=== PATIENT | male | born 1960 | race African-American/Black ===

== ENCOUNTER 2016-07-21 20:36 | Inpatient (IN) | payer MEDICAID ==
[~2016-07-21] VITALS: Ht 167.6 cm; Wt 59.4 kg
[2016-07-21] MEDS ORDERED: LEVOFLOXACIN 500MG PREMIX 100 ML IV ONE (21:30)
[2016-07-21] MEDS ORDERED: PREDNISONE 20MG TABLET PO ONE (21:30)
[2016-07-21] MEDS ORDERED: CEFTRIAXONE SODIUM 1 G/VIAL IM ONE (21:30)
[2016-07-21] MEDS ORDERED: ACETAMINOPHEN 325MG TABLET PO ONE (21:30)
[2016-07-21] MEDS ORDERED: CEFTRIAXONE 1 G PREMIX 50 ML IV ONE (21:30)
[2016-07-21] MEDS ORDERED: IPRATROPIUM/ALBUTEROL 0.5-3(2.5)MG/3ML NEB HHN ONE (21:30)
[2016-07-21 21:52] LABS: HEMATOCRIT. 41.3 % (42.0-52.0); HEMOGLOBIN. 13.8 g/dL (14.0-18.0); MEAN CORPUSCULAR HEMOGLOBIN 27.4 pg (28.0-32.0); MEAN CORPUSCULAR HGB CONC 33.4 g/dL (31.0-37.0); MEAN CORPUSCULAR VOLUME 82.1 fL (80.0-94.0); MEAN PLATELET VOLUME 8.7 fl (7.4-10.4); PLATELET 258 x1000/uL (130-400); RED BLOOD CELL COUNT 5.04 mill/uL (4.7-6.1); RED CELL DISTRIBUTION WIDTH 15.8 % (11.6-14.6); WHITE BLOOD COUNT 9.9 x1000/uL (4.5-11.0)
[2016-07-21 21:58] LABS: DIFFERENTIAL COMMENT 1
[2016-07-21 22:01] LABS: ALBUMIN 2.9 g/dL (3.4-5.0); ANION GAP 14; CALCIUM 8.7 mg/dL (8.5-10.1); CARBON DIOXIDE 22 mEq/L (21-32); CHLORIDE 103 mEq/L (98-107); INDEX HEMOLYSI 1 (1-3); INDEX ICTERIC 1 (1-4); INDEX LIPEMIC 1 (1-3); UREA NITROGEN BLOOD 25 mg/dL (7-21)
[2016-07-21 22:05] LABS: ALANINE AMINOTRANSFERASE 17 IU/L (13-61); eGFR > 60 mL/min (>60)
[2016-07-21 22:18] LABS: PLATELET ESTIMATE NORMAL
[2016-07-21 22:21] LABS: BG BASE EXCESS -1.1 mmol/L (-2.0-2.0); BG CARBOXYHEMOGLOBIN 1.2 % (0.5-1.5); BG DEOXYHEMOGLOBIN 14.6 % (0.0-5.0); BG FRACTION INSPIRED OXYGEN 21; BG HCO3 ACT 20.4 mmol/L (22.0-26.0); BG METHEMOGLOBIN 0.1 % (0.0-1.5); BG OXYGEN SATURATION 85.2 % (92.0-98.5); BG OXYHEMOGLOBIN 84.1 % (94.0-97.0); BG PCO2 26.5 mmHg (35.0-45.0); BG PH 7.505 (7.350-7.450); BG PO2 48.7 mmHg (75.0-100.0); BG SAMPLE SITE LEFT RADIAL; BG TOTAL HEMOGLOBIN 14.6 g/dL (12.0-18.0); BG VENT MODE ROOM AIR
[2016-07-21] MEDS ORDERED: ONDANSETRON HCL 4MG/2ML VIAL IV ONE (23:30)
[2016-07-22] MEDS ORDERED: GUAIFENESIN 200MG/10ML SUGAR FREE UDC PO PRN (00:45)
[2016-07-22] MEDS ORDERED: HYDROCODONE/ACETAMINOPHEN 5/325MG TABLET PO PRN (00:45)
[2016-07-22] MEDS ORDERED: ONDANSETRON HCL 4MG/2ML VIAL IV PRN (00:45)
[2016-07-22] MEDS ORDERED: MAGNESIUM/ALUMINUM HYDROXIDE/SIMETHICONE 30ML UDC PO PRN (00:45)
[2016-07-22] MEDS ORDERED: HYDROMORPHONE HCL/PF 2MG/ML CPJ IV PRN (00:45)
[2016-07-22] MEDS ORDERED: DOCUSATE SODIUM 100MG CAPSULE PO PRN (00:45)
[2016-07-22 02:30] VITALS: BP 120/80
[2016-07-22 02:39] VITALS: BP 120/80
[2016-07-22] MEDS: SODIUM CHLORIDE 0.9% 1,000 ML IV SCH ×2 (02:44→17:38)
[2016-07-22] MEDS ORDERED: RITO100T PO (03:15)
[2016-07-22] MEDS ORDERED: ENAL5TAB PO (03:15)
[2016-07-22] MEDS ORDERED: ETRAVIRINE PO (03:15)
[2016-07-22] MEDS ORDERED: PREZISTA PO (03:15)
[2016-07-22] MEDS ORDERED: AZIT500T5 PO (03:15)
[2016-07-22 04:06] LABS: CLARITY URINE CLEAR (CLEAR); COLOR URINE YELLOW (YELLOW); GLUCOSE URINE NEGATIVE (NEGATIVE); KETONES URINE NEGATIVE (NEGATIVE); LEUKOCYTE ESTERASE URINE NEGATIVE (NEGATIVE); NITRITE URINE NEGATIVE (NEGATIVE); OCCULT BLOOD URINE NEGATIVE (NEGATIVE); PH URINE 5.5 (4.5-8.0); PROTEIN URINE NEGATIVE (NEGATIVE); SPECIFIC GRAVITY URINE 1.064 (1.005-1.030)
[2016-07-22] MEDS: PREDNISONE 20MG TABLET PO SCH ×2 (05:37→13:37)
[2016-07-22 07:32] LABS: CREATINE KINASE MB FRACTION 3.4 ng/mL (0.5-3.6); TROPONIN I 0.05 ng/mL (0.00-0.04)
[2016-07-22 08:00] VITALS: BP 149/89
[2016-07-22] MEDS: ENOXAPARIN 40MG/0.4ML SYR SUBCUT SCH (09:27)
[2016-07-22] MEDS: ASPIRIN 81MG TABLET PO SCH (09:27)
[2016-07-22] MEDS ORDERED: SODIUM CHLORIDE 0.9% 10ML VIAL ONE (11:01)
[2016-07-22] MEDS ORDERED: IOHEXOL-350 100 ML BOTTLE ONE (11:01)
[2016-07-22 12:00] VITALS: BP 142/76
[2016-07-22] MEDS: ENALAPRIL 5MG TABLET PO SCH (13:38)
[2016-07-22 14:07] LABS: *AMPHETAMINES SCREEN URINE NEGATIVE (NEGATIVE); *BARBITURATES SCREEN URINE NEGATIVE (NEGATIVE); *BENZODIAZEPINES SCREEN URINE NEGATIVE (NEGATIVE); *COCAINE SCREEN URINE PRESUMTIVE POSITIVE (NEGATIVE); CANNABINOID URINE SCREEN PRESUMTIVE POSITIVE (NEGATIVE); ECSTASY MDMA SCREEN URINE NEGATIVE (NEGATIVE); METHADONE URINE SCREEN NEGATIVE (NEGATIVE); OPIATES URINE SCREEN NEGATIVE (NEGATIVE); PHENCYCLIDINE URINE SCREEN NEGATIVE (NEGATIVE)
[2016-07-22 16:00] VITALS: BP 136/91
[2016-07-22 16:38] LABS: CREATINE KINASE MB FRACTION 4.6 ng/mL (0.5-3.6); TROPONIN I 0.03 ng/mL (0.00-0.04)
[2016-07-22] MEDS ORDERED: PREZISTA 600 MG PO SCH (17:00)
[2016-07-22] MEDS ORDERED: ETRAVIRINE 200 MG PO SCH (17:00)
[2016-07-22] MEDS ORDERED: NICOTINE 21MG PATCH TD ONE (17:15)
[2016-07-22] MEDS ORDERED: LORAZEPAM 2MG/ML CPJ IV PRN (17:15)
[2016-07-22] MEDS ORDERED: MORPHINE SULFATE 2 MG/ML CPJ (NOT FOR IM USE) IV PRN (17:15)
[2016-07-22] MEDS ORDERED: NICOTINE 21MG PATCH TD SCH (17:25)
[2016-07-22] MEDS: SULFAMETHOXAZOLE/TRIMETHOPRIM 800/160MG TABLET PO SCH (17:37)
[2016-07-22] MEDS: MULTIVITAMINS,THER W-MINERALS TABLET PO SCH (17:37)
[2016-07-22] MEDS: THIAMINE HCL 100MG TABLET PO SCH (17:37)
[2016-07-22] MEDS: FOLIC ACID 1MG TABLET PO SCH (17:37)
[2016-07-22] MEDS: RITONAVIR 100 MG TABLET PO SCH (17:37)
[2016-07-22] MEDS: PREZISTA 600 MG PO SCH (17:38)
[2016-07-22] MEDS: INTELENCE 200 MG PO SCH (17:39)
[2016-07-22] MEDS ORDERED: PNEUMOCOCCAL 23-VAL P-SAC VAC 0.5 ML IM ONE (18:00)
[2016-07-22] MEDS: IPRATROPIUM/ALBUTEROL 0.5-3(2.5)MG/3ML NEB INH SCH (18:53)
[2016-07-22 20:00] VITALS: BP 140/99
[2016-07-22 20:13] LABS: BG BASE EXCESS -3.9 mmol/L (-2.0-2.0); BG CARBOXYHEMOGLOBIN 0.1 % (0.5-1.5); BG DEOXYHEMOGLOBIN 2.6 % (0.0-5.0); BG FRACTION INSPIRED OXYGEN 100; BG HCO3 ACT 19.6 mmol/L (22.0-26.0); BG METHEMOGLOBIN 0.3 % (0.0-1.5); BG OXYGEN SATURATION 97.4 % (92.0-98.5); BG PH 7.419 (7.350-7.450); BG PO2 106.2 mmHg (75.0-100.0); BG SAMPLE SITE LEFT RADIAL; BG TOTAL HEMOGLOBIN 12.3 g/dL (12.0-18.0); BG VENT MODE MASK - NRB
[2016-07-22] MEDS: BUDESONIDE 0.5MG/2ML NEB HHN SCH (20:40)
[2016-07-22] MEDS: NICOTINE 21MG PATCH TD SCH (21:48)
[2016-07-22] MEDS: METHYLPREDNISOLONE SOD SUCC 125 MG/2 ML VIAL IV SCH (21:59)
[2016-07-22] MEDS ORDERED: CEFTRIAXONE 1 G PREMIX 50 ML IV SCH (22:00)
[2016-07-22] MEDS ORDERED: LEVOFLOXACIN 500MG PREMIX 100 ML IV SCH (22:00)
[2016-07-23] VITALS: BP 127/82
[2016-07-23] MEDS: IPRATROPIUM/ALBUTEROL 0.5-3(2.5)MG/3ML NEB INH SCH ×4 (00:37→11:54)
[2016-07-23 04:00] VITALS: BP 145/101
[2016-07-23] MEDS: METHYLPREDNISOLONE SOD SUCC 125 MG/2 ML VIAL IV SCH (06:14)
[2016-07-23] MEDS: SODIUM CHLORIDE 0.9% 1,000 ML IV SCH (06:18)
[2016-07-23 06:28] LABS: HEMATOCRIT. 36.8 % (42.0-52.0); HEMOGLOBIN. 11.9 g/dL (14.0-18.0); MEAN CORPUSCULAR HGB CONC 32.4 g/dL (31.0-37.0); MEAN CORPUSCULAR VOLUME 83.5 fL (80.0-94.0); MEAN PLATELET VOLUME 8.8 fl (7.4-10.4); PLATELET 277 x1000/uL (130-400); RED CELL DISTRIBUTION WIDTH 15.5 % (11.6-14.6); WHITE BLOOD COUNT 18.1 x1000/uL (4.5-11.0)
[2016-07-23 06:36] LABS: CALCIUM 8.5 mg/dL (8.5-10.1); INDEX HEMOLYSI 1 (1-3); INDEX ICTERIC 1 (1-4); INDEX LIPEMIC 1 (1-3)
[2016-07-23 06:56] LABS: DIFFERENTIAL COMMENT 1
[2016-07-23 06:58] LABS: CARBON DIOXIDE 23 mEq/L (21-32); LDL CHOLESTEROL 74 mg/dL (5-100); TRIGLYCERIDE 116 mg/dL (0-150); UREA NITROGEN BLOOD 21 mg/dL (7-21); eGFR > 60 mL/min (>60)
[2016-07-23 07:05] LABS: ALANINE AMINOTRANSFERASE 21 IU/L (13-61); ALBUMIN 2.4 g/dL (3.4-5.0); ANION GAP 13; CHLORIDE 110 mEq/L (98-107); HDL CHOLESTEROL 25 mg/dL (40-59)
[2016-07-23 07:43] LABS: BG BASE EXCESS -3.2 mmol/L (-2.0-2.0); BG CARBOXYHEMOGLOBIN 0.5 % (0.5-1.5); BG DEOXYHEMOGLOBIN 10.9 % (0.0-5.0); BG FRACTION INSPIRED OXYGEN 36; BG HCO3 ACT 20.4 mmol/L (22.0-26.0); BG METHEMOGLOBIN 0.2 % (0.0-1.5); BG OXYHEMOGLOBIN 88.4 % (94.0-97.0); BG PCO2 32.4 mmHg (35.0-45.0); BG PH 7.418 (7.350-7.450); BG PO2 58.1 mmHg (75.0-100.0); BG SAMPLE SITE RIGHT BRACHIAL; BG VENT MODE NASAL CANNULA
[2016-07-23 08:00] VITALS: BP 136/90
[2016-07-23] MEDS: BUDESONIDE 0.5MG/2ML NEB HHN SCH ×2 (08:13→20:49)
[2016-07-23] MEDS: ENOXAPARIN 40MG/0.4ML SYR SUBCUT SCH (08:37)
[2016-07-23] MEDS: MULTIVITAMINS,THER W-MINERALS TABLET PO SCH (08:38)
[2016-07-23] MEDS: THIAMINE HCL 100MG TABLET PO SCH (08:38)
[2016-07-23] MEDS: NICOTINE 21MG PATCH TD SCH (08:38)
[2016-07-23] MEDS: FOLIC ACID 1MG TABLET PO SCH (08:39)
[2016-07-23] MEDS: ASPIRIN 81MG TABLET PO SCH (08:39)
[2016-07-23] MEDS: SULFAMETHOXAZOLE/TRIMETHOPRIM 800/160MG TABLET PO SCH (08:39)
[2016-07-23] MEDS: ENALAPRIL 5MG TABLET PO SCH (08:39)
[2016-07-23] MEDS: RITONAVIR 100 MG TABLET PO SCH ×2 (08:39→16:42)
[2016-07-23] MEDS: PREZISTA 600 MG PO SCH ×2 (08:40→16:43)
[2016-07-23] MEDS: INTELENCE 200 MG PO SCH ×2 (08:40→16:43)
[2016-07-23 09:41] LABS: T4 FREE 1.11 ng/dL (0.76-1.46); THYROID STIMULATING HORMONE 0.24 uIU/mL (0.36-3.74)
[2016-07-23 10:37] LABS: PLATELET ESTIMATE NORMAL
[2016-07-23] MEDS ORDERED: DILTIAZEM HCL 5MG/ML 5ML VIAL IV NR (14:00)
[2016-07-23 14:21] LABS: BG BASE EXCESS -3.3 mmol/L (-2.0-2.0); BG CARBOXYHEMOGLOBIN 0.4 % (0.5-1.5); BG DEOXYHEMOGLOBIN 3.8 % (0.0-5.0); BG HCO3 ACT 20.8 mmol/L (22.0-26.0); BG METHEMOGLOBIN 0.2 % (0.0-1.5); BG OXYGEN SATURATION 96.2 % (92.0-98.5); BG OXYHEMOGLOBIN 95.6 % (94.0-97.0); BG PCO2 34.2 mmHg (35.0-45.0); BG PH 7.401 (7.350-7.450); BG PO2 89.8 mmHg (75.0-100.0); BG SAMPLE SITE RIGHT RADIAL; BG TOTAL HEMOGLOBIN 12.9 g/dL (12.0-18.0); BG VENT MODE MASK - NRB
[2016-07-23] MEDS: FAMOTIDINE 20MG/2ML VIAL IV SCH ×2 (14:24→21:22)
[2016-07-23] MEDS: METHYLPREDNISOLONE SOD SUCC 40 MG/ML VIAL IV SCH ×2 (14:24→21:22)
[2016-07-23 16:00] VITALS: BP 123/86
[2016-07-23 20:00] VITALS: BP 149/106
[2016-07-23] MEDS: FLUTICASONE PROPIONATE 50MCG/SPRAY BOTTLE BOTHNSTRLS SCH (21:44)
[2016-07-24] VITALS: BP 148/93
[2016-07-24 04:00] VITALS: BP 148/100
[2016-07-24] MEDS: CLONIDINE 0.1MG TABLET PO PRN ×3 (05:04→18:37)
[2016-07-24] MEDS: ACETAMINOPHEN 325MG TABLET PO PRN (05:08)
[2016-07-24] MEDS: METHYLPREDNISOLONE SOD SUCC 40 MG/ML VIAL IV SCH ×3 (06:03→21:47)
[2016-07-24 06:25] LABS: HEMATOCRIT. 34.3 % (42.0-52.0); HEMOGLOBIN. 11.2 g/dL (14.0-18.0); MEAN CORPUSCULAR HEMOGLOBIN 26.7 pg (28.0-32.0); MEAN CORPUSCULAR HGB CONC 32.6 g/dL (31.0-37.0); MEAN CORPUSCULAR VOLUME 81.9 fL (80.0-94.0); MEAN PLATELET VOLUME 8.5 fl (7.4-10.4); PLATELET 298 x1000/uL (130-400); RED BLOOD CELL COUNT 4.19 mill/uL (4.7-6.1); RED CELL DISTRIBUTION WIDTH 15.8 % (11.6-14.6); WHITE BLOOD COUNT 20.7 x1000/uL (4.5-11.0)
[2016-07-24 06:41] LABS: ANION GAP 13; CALCIUM 9.1 mg/dL (8.5-10.1); CARBON DIOXIDE 24 mEq/L (21-32); CHLORIDE 111 mEq/L (98-107); INDEX HEMOLYSI 1 (1-3); INDEX ICTERIC 1 (1-4); INDEX LIPEMIC 1 (1-3); UREA NITROGEN BLOOD 18 mg/dL (7-21); eGFR > 60 mL/min (>60)
[2016-07-24 07:29] LABS: DIFFERENTIAL COMMENT 1
[2016-07-24] MEDS: ALBUTEROL (0.083%) 2.5MG/3ML NEB HHN PRN (08:07)
[2016-07-24] MEDS: BUDESONIDE 0.5MG/2ML NEB HHN SCH ×2 (08:10→21:51)
[2016-07-24] MEDS: FLUTICASONE PROPIONATE 50MCG/SPRAY BOTTLE BOTHNSTRLS SCH ×2 (08:53→21:47)
[2016-07-24] MEDS: FAMOTIDINE 20MG/2ML VIAL IV SCH ×2 (08:53→21:47)
[2016-07-24] MEDS: SULFAMETHOXAZOLE/TRIMETHOPRIM 800/160MG TABLET PO SCH (08:54)
[2016-07-24] MEDS: ENALAPRIL 5MG TABLET PO SCH (08:54)
[2016-07-24] MEDS: ASPIRIN 81MG TABLET PO SCH (08:54)
[2016-07-24] MEDS: FOLIC ACID 1MG TABLET PO SCH (08:54)
[2016-07-24] MEDS: THIAMINE HCL 100MG TABLET PO SCH (08:55)
[2016-07-24] MEDS: PREZISTA 600 MG PO SCH ×2 (08:55→17:40)
[2016-07-24] MEDS: MULTIVITAMINS,THER W-MINERALS TABLET PO SCH (08:56)
[2016-07-24] MEDS: RITONAVIR 100 MG TABLET PO SCH ×2 (08:56→17:40)
[2016-07-24] MEDS: INTELENCE 200 MG PO SCH ×2 (08:56→17:40)
[2016-07-24] MEDS: NICOTINE 21MG PATCH TD SCH (08:58)
[2016-07-24] MEDS: ENOXAPARIN 40MG/0.4ML SYR SUBCUT SCH (09:00)
[2016-07-24 12:30] VITALS: BP 157/98
[2016-07-24 13:46] LABS: BG BASE EXCESS -0.1 mmol/L (-2.0-2.0); BG CARBOXYHEMOGLOBIN 0.3 % (0.5-1.5); BG DEOXYHEMOGLOBIN 0.9 % (0.0-5.0); BG FRACTION INSPIRED OXYGEN 99.8; BG HCO3 ACT 23.3 mmol/L (22.0-26.0); BG METHEMOGLOBIN 0.1 % (0.0-1.5); BG OXYGEN SATURATION 99.1 % (92.0-98.5); BG OXYHEMOGLOBIN 98.7 % (94.0-97.0); BG PCO2 33.7 mmHg (35.0-45.0); BG PH 7.457 (7.350-7.450); BG PO2 234.4 mmHg (75.0-100.0); BG SAMPLE SITE RIGHT BRACHIAL; BG TOTAL HEMOGLOBIN 12.4 g/dL (12.0-18.0); BG VENT MODE MASK - NRB
[2016-07-24 14:32] LABS: ANISOCYTOSIS 1+; PLATELET ESTIMATE NORMAL
[2016-07-24 16:00] VITALS: BP 156/108
[2016-07-24 20:00] VITALS: BP 140/92
[2016-07-24 22:00] VITALS: BP 148/99
[2016-07-25] VITALS (12 sets, daily range): BP systolic 124–183; BP diastolic 78–124
[2016-07-25 06:30] LABS: HEMATOCRIT. 33.3 % (42.0-52.0); HEMOGLOBIN. 10.9 g/dL (14.0-18.0); MEAN CORPUSCULAR HEMOGLOBIN 26.5 pg (28.0-32.0); MEAN CORPUSCULAR HGB CONC 32.6 g/dL (31.0-37.0); MEAN CORPUSCULAR VOLUME 81.4 fL (80.0-94.0); MEAN PLATELET VOLUME 8.7 fl (7.4-10.4); PLATELET 326 x1000/uL (130-400); RED CELL DISTRIBUTION WIDTH 15.8 % (11.6-14.6); WHITE BLOOD COUNT 15.4 x1000/uL (4.5-11.0)
[2016-07-25] MEDS: METHYLPREDNISOLONE SOD SUCC 40 MG/ML VIAL IV SCH ×3 (06:32→21:03)
[2016-07-25 07:24] LABS: ANION GAP 12; CALCIUM 8.6 mg/dL (8.5-10.1); CARBON DIOXIDE 27 mEq/L (21-32); CHLORIDE 108 mEq/L (98-107); INDEX HEMOLYSI 1 (1-3); INDEX ICTERIC 1 (1-4); INDEX LIPEMIC 1 (1-3); UREA NITROGEN BLOOD 20 mg/dL (7-21); eGFR > 60 mL/min (>60)
[2016-07-25 07:25] LABS: DIFFERENTIAL COMMENT 1
[2016-07-25] MEDS: FAMOTIDINE 20MG/2ML VIAL IV SCH ×2 (08:36→21:03)
[2016-07-25] MEDS: RITONAVIR 100 MG TABLET PO SCH ×2 (08:36→16:08)
[2016-07-25] MEDS: ASPIRIN 81MG TABLET PO SCH (08:36)
[2016-07-25] MEDS: THIAMINE HCL 100MG TABLET PO SCH (08:36)
[2016-07-25] MEDS: NICOTINE 21MG PATCH TD SCH (08:36)
[2016-07-25] MEDS: ENOXAPARIN 40MG/0.4ML SYR SUBCUT SCH (08:36)
[2016-07-25] MEDS: FOLIC ACID 1MG TABLET PO SCH (08:36)
[2016-07-25] MEDS: SULFAMETHOXAZOLE/TRIMETHOPRIM 800/160MG TABLET PO SCH (08:36)
[2016-07-25] MEDS: FLUTICASONE PROPIONATE 50MCG/SPRAY BOTTLE BOTHNSTRLS SCH ×2 (08:37→21:04)
[2016-07-25] MEDS: ENALAPRIL 5MG TABLET PO SCH (08:37)
[2016-07-25] MEDS: PREZISTA 600 MG PO SCH ×2 (08:37→16:07)
[2016-07-25] MEDS: INTELENCE 200 MG PO SCH ×2 (08:37→16:07)
[2016-07-25] MEDS: MULTIVITAMINS,THER W-MINERALS TABLET PO SCH (08:37)
[2016-07-25] MEDS: BUDESONIDE 0.5MG/2ML NEB HHN SCH ×2 (09:48→20:33)
[2016-07-25 10:59] LABS: ANISOCYTOSIS 1+; PLATELET ESTIMATE NORMAL
[2016-07-25] MEDS: CLONIDINE 0.1MG TABLET PO PRN (12:34)
[2016-07-25 13:07] LABS: % CD 3 POS. LYMPHOCYTES 47.1 % (57.5-86.2); % CD 4 POS. LYMPHOCYTES 1.2 % (30.8-58.5); % CD 8 POS. LYMPH 44.7 % (12.0-35.5); CD4/CD8 RATIO 0.03 (0.92-3.72)
[2016-07-25 14:06] LABS: BG BASE EXCESS 1.2 mmol/L (-2.0-2.0); BG CARBOXYHEMOGLOBIN 0.4 % (0.5-1.5); BG DEOXYHEMOGLOBIN 4.7 % (0.0-5.0); BG FRACTION INSPIRED OXYGEN 100; BG METHEMOGLOBIN 0.2 % (0.0-1.5); BG OXYGEN SATURATION 95.3 % (92.0-98.5); BG OXYHEMOGLOBIN 94.7 % (94.0-97.0); BG PCO2 36.7 mmHg (35.0-45.0); BG PH 7.451 (7.350-7.450); BG PO2 80.9 mmHg (75.0-100.0); BG SAMPLE SITE RIGHT BRACHIAL; BG TOTAL HEMOGLOBIN 12.8 g/dL (12.0-18.0); BG VENT MODE MASK - NRB
[2016-07-25] MEDS: LEVOFLOXACIN 750MG PREMIX 150 ML IV SCH (16:08)
[2016-07-26] VITALS (15 sets, daily range): BP systolic 129–175; BP diastolic 69–122
[2016-07-26] MEDS: METHYLPREDNISOLONE SOD SUCC 40 MG/ML VIAL IV SCH ×3 (05:27→21:35)
[2016-07-26 07:05] LABS: HEMATOCRIT. 35.2 % (42.0-52.0); HEMOGLOBIN. 11.7 g/dL (14.0-18.0); MEAN CORPUSCULAR HEMOGLOBIN 27.2 pg (28.0-32.0); MEAN CORPUSCULAR HGB CONC 33.1 g/dL (31.0-37.0); MEAN CORPUSCULAR VOLUME 82.1 fL (80.0-94.0); MEAN PLATELET VOLUME 8.9 fl (7.4-10.4); PLATELET 348 x1000/uL (130-400); RED BLOOD CELL COUNT 4.29 mill/uL (4.7-6.1); RED CELL DISTRIBUTION WIDTH 15.6 % (11.6-14.6); WHITE BLOOD COUNT 13.2 x1000/uL (4.5-11.0)
[2016-07-26 07:24] LABS: DIFFERENTIAL COMMENT 1
[2016-07-26 07:55] LABS: ANION GAP 14; CALCIUM 8.5 mg/dL (8.5-10.1); CARBON DIOXIDE 26 mEq/L (21-32); CHLORIDE 105 mEq/L (98-107); INDEX HEMOLYSI 1 (1-3); INDEX ICTERIC 1 (1-4); INDEX LIPEMIC 1 (1-3); UREA NITROGEN BLOOD 23 mg/dL (7-21); eGFR > 60 mL/min (>60)
[2016-07-26] MEDS: BUDESONIDE 0.5MG/2ML NEB HHN SCH ×2 (09:00→20:39)
[2016-07-26] MEDS: INTELENCE 200 MG PO SCH ×2 (09:12→18:09)
[2016-07-26] MEDS: RITONAVIR 100 MG TABLET PO SCH ×2 (09:13→18:09)
[2016-07-26] MEDS: MULTIVITAMINS,THER W-MINERALS TABLET PO SCH (09:13)
[2016-07-26] MEDS: PREZISTA 600 MG PO SCH ×2 (09:13→18:10)
[2016-07-26] MEDS: ENALAPRIL 5MG TABLET PO SCH (09:13)
[2016-07-26] MEDS: ASPIRIN 81MG TABLET PO SCH (09:13)
[2016-07-26] MEDS: FOLIC ACID 1MG TABLET PO SCH (09:13)
[2016-07-26] MEDS: THIAMINE HCL 100MG TABLET PO SCH (09:13)
[2016-07-26] MEDS: FLUTICASONE PROPIONATE 50MCG/SPRAY BOTTLE BOTHNSTRLS SCH (09:14)
[2016-07-26] MEDS: NICOTINE 21MG PATCH TD SCH (09:14)
[2016-07-26] MEDS: FAMOTIDINE 20MG/2ML VIAL IV SCH ×2 (09:14→21:35)
[2016-07-26] MEDS: ENOXAPARIN 40MG/0.4ML SYR SUBCUT SCH (09:15)
[2016-07-26] MEDS: SULFAMETHOXAZOLE/TRIMETHOPRIM 800/160MG TABLET PO SCH (10:03)
[2016-07-26 10:52] LABS: PLATELET ESTIMATE NORMAL
[2016-07-26 13:37] LABS: ABSOLUTE CD 3 424 /uL (622-2402); ABSOLUTE CD 4 HELPER 11 /uL (359-1519); ABSOLUTE CD 8 SUPPRESSOR 402 /uL (109-897); ABSOLUTE LYMPHOCYTES 0.9 x10E3/uL (0.7-3.1); ABSOLUTE MONOCYTES 0.7 x10E3/uL (0.1-0.9); ABSOLUTE NEUTROPHILS 16.7 x10E3/uL (1.4-7.0); BASOPHILS 0 % (.); EOSINOPHILS 0 % (.); HEMATOCRIT 38.9 % (37.5-51.0); LYMPHOCYTES 5 % (.); MEAN CORPUSCULAR HEMOGLOBIN 27.6 pg (26.6-33.0); MEAN CORPUSCULAR HGB CONC. 30.8 g/dL (31.5-35.7); MEAN CORPUSCULAR VOLUME 89 fL (79-97); MONOCYTES 4 % (.); NEUTROPHILS 91 % (.); NUCLEATED RBC 0 % (0 - 0); PLATELETS 344 x10E3/uL (150-379); RBC 4.35 x10E6/uL (4.14-5.80); RED CELL DISTRIBUTION WIDTH 15.1 % (12.3-15.4); WBC 18.4 x10E3/uL (3.4-10.8)
[2016-07-26] MEDS: LEVOFLOXACIN 750MG PREMIX 150 ML IV SCH (14:49)
[2016-07-26] MEDS: THEOPHYLLINE ANHYDROUS 80 MG/15 ML 120ML PO SCH ×2 (14:51→21:35)
[2016-07-26] MEDS ORDERED: HYDROCORTISONE 1% CREAM 30GM TOP PRN (16:00)
[2016-07-26] MEDS: ALBUTEROL (0.083%) 2.5MG/3ML NEB HHN PRN (20:39)
[2016-07-26] MEDS: BACITRACIN ZINC 15GM TUBE TOP SCH (21:35)
[2016-07-26] MEDS: CLONIDINE 0.1MG TABLET PO PRN (21:35)
[2016-07-27] VITALS (12 sets, daily range): BP systolic 128–159; BP diastolic 53–109
[2016-07-27] MEDS: THEOPHYLLINE ANHYDROUS 80 MG/15 ML 120ML PO SCH ×3 (05:02→21:25)
[2016-07-27] MEDS: METHYLPREDNISOLONE SOD SUCC 40 MG/ML VIAL IV SCH ×3 (05:02→21:24)
[2016-07-27] MEDS: BUDESONIDE 0.5MG/2ML NEB HHN SCH ×2 (08:58→20:35)
[2016-07-27] MEDS: MULTIVITAMINS,THER W-MINERALS TABLET PO SCH (09:44)
[2016-07-27] MEDS: FAMOTIDINE 20MG/2ML VIAL IV SCH ×2 (09:44→21:24)
[2016-07-27] MEDS: ASPIRIN 81MG TABLET PO SCH (09:44)
[2016-07-27] MEDS: THIAMINE HCL 100MG TABLET PO SCH (09:45)
[2016-07-27] MEDS: ENALAPRIL 5MG TABLET PO SCH (09:45)
[2016-07-27] MEDS: NICOTINE 21MG PATCH TD SCH (09:45)
[2016-07-27] MEDS: SULFAMETHOXAZOLE/TRIMETHOPRIM 800/160MG TABLET PO SCH (09:45)
[2016-07-27] MEDS: PREZISTA 600 MG PO SCH ×2 (09:45→18:35)
[2016-07-27] MEDS: FOLIC ACID 1MG TABLET PO SCH (09:45)
[2016-07-27] MEDS: BACITRACIN ZINC 15GM TUBE TOP SCH ×2 (09:45→21:24)
[2016-07-27] MEDS: INTELENCE 200 MG PO SCH ×2 (09:46→18:35)
[2016-07-27] MEDS: RITONAVIR 100 MG TABLET PO SCH ×2 (09:50→18:35)
[2016-07-27] MEDS: ENOXAPARIN 40MG/0.4ML SYR SUBCUT SCH (09:51)
[2016-07-27] MEDS: LEVOFLOXACIN 750MG PREMIX 150 ML IV SCH (14:54)
[2016-07-27] MEDS: CLONIDINE 0.1MG TABLET PO PRN (18:36)
[2016-07-28] VITALS (12 sets, daily range): BP systolic 133–177; BP diastolic 79–108
[2016-07-28] MEDS: METHYLPREDNISOLONE SOD SUCC 40 MG/ML VIAL IV SCH ×3 (05:55→20:58)
[2016-07-28] MEDS: THEOPHYLLINE ANHYDROUS 80 MG/15 ML 120ML PO SCH ×3 (05:56→20:59)
[2016-07-28] MEDS: CLONIDINE 0.1MG TABLET PO PRN ×2 (06:51→13:56)
[2016-07-28 07:07] LABS: HEMOGLOBIN. 11.7 g/dL (14.0-18.0); MEAN CORPUSCULAR HEMOGLOBIN 26.8 pg (28.0-32.0); MEAN CORPUSCULAR HGB CONC 32.4 g/dL (31.0-37.0); MEAN CORPUSCULAR VOLUME 82.7 fL (80.0-94.0); MEAN PLATELET VOLUME 8.3 fl (7.4-10.4); PLATELET 411 x1000/uL (130-400); RED BLOOD CELL COUNT 4.35 mill/uL (4.7-6.1); RED CELL DISTRIBUTION WIDTH 15.8 % (11.6-14.6)
[2016-07-28 07:13] LABS: DIFFERENTIAL COMMENT 1
[2016-07-28 07:38] LABS: CHLORIDE 105 mEq/L (98-107); INDEX HEMOLYSI 1 (1-3); INDEX ICTERIC 1 (1-4); INDEX LIPEMIC 1 (1-3)
[2016-07-28 07:46] LABS: ANION GAP 14; CALCIUM 8.1 mg/dL (8.5-10.1); CARBON DIOXIDE 26 mEq/L (21-32); UREA NITROGEN BLOOD 20 mg/dL (7-21); eGFR > 60 mL/min (>60)
[2016-07-28 08:07] LABS: PLATELET ESTIMATE INCREASED
[2016-07-28] MEDS: BUDESONIDE 0.5MG/2ML NEB HHN SCH ×2 (08:16→20:11)
[2016-07-28] MEDS: ALBUTEROL (0.083%) 2.5MG/3ML NEB HHN PRN ×2 (08:16→20:11)
[2016-07-28] MEDS ORDERED: AZITHROMYCIN 500 MG TABLET PO SCH (09:00)
[2016-07-28] MEDS: THIAMINE HCL 100MG TABLET PO SCH (09:15)
[2016-07-28] MEDS: ENOXAPARIN 40MG/0.4ML SYR SUBCUT SCH (09:15)
[2016-07-28] MEDS: MULTIVITAMINS,THER W-MINERALS TABLET PO SCH (09:16)
[2016-07-28] MEDS: FOLIC ACID 1MG TABLET PO SCH (09:16)
[2016-07-28] MEDS: ASPIRIN 81MG TABLET PO SCH (09:16)
[2016-07-28] MEDS: BACITRACIN ZINC 15GM TUBE TOP SCH ×2 (09:19→20:57)
[2016-07-28] MEDS: ENALAPRIL 5MG TABLET PO SCH (09:19)
[2016-07-28] MEDS: FAMOTIDINE 20MG/2ML VIAL IV SCH ×2 (09:19→20:58)
[2016-07-28] MEDS: SULFAMETHOXAZOLE/TRIMETHOPRIM 800/160MG TABLET PO SCH (09:19)
[2016-07-28] MEDS: AZITHROMYCIN 600 MG TABLET PO SCH (09:20)
[2016-07-28] MEDS: RITONAVIR 100 MG TABLET PO SCH ×2 (09:21→18:02)
[2016-07-28] MEDS: NICOTINE 21MG PATCH TD SCH (09:21)
[2016-07-28] MEDS: PREZISTA 600 MG PO SCH ×2 (09:22→18:03)
[2016-07-28] MEDS: INTELENCE 200 MG PO SCH ×2 (09:22→18:03)
[2016-07-28 09:37] LABS: BG BASE EXCESS 2.8 mmol/L (-2.0-2.0); BG CARBOXYHEMOGLOBIN 0.1 % (0.5-1.5); BG DEOXYHEMOGLOBIN 7.3 % (0.0-5.0); BG FRACTION INSPIRED OXYGEN 100; BG HCO3 ACT 26.8 mmol/L (22.0-26.0); BG METHEMOGLOBIN 0.2 % (0.0-1.5); BG OXYGEN SATURATION 92.7 % (92.0-98.5); BG OXYHEMOGLOBIN 92.4 % (94.0-97.0); BG PCO2 39.2 mmHg (35.0-45.0); BG PH 7.453 (7.350-7.450); BG PO2 67.8 mmHg (75.0-100.0); BG SAMPLE SITE RIGHT BRACHIAL; BG TOTAL HEMOGLOBIN 12.5 g/dL (12.0-18.0); BG VENT MODE VAPOTHERM
[2016-07-28] MEDS ORDERED: POTASSIUM CHLORIDE 20MEQ TABLET SR PO SCH (10:45)
[2016-07-28] MEDS: LEVOFLOXACIN 750MG PREMIX 150 ML IV SCH (14:00)
[2016-07-29] VITALS (12 sets, daily range): BP systolic 115–158; BP diastolic 77–114
[2016-07-29 06:38] LABS: ANION GAP 14; CARBON DIOXIDE 26 mEq/L (21-32); CHLORIDE 106 mEq/L (98-107); HEMATOCRIT. 36.5 % (42.0-52.0); HEMOGLOBIN. 11.7 g/dL (14.0-18.0); INDEX HEMOLYSI 1 (1-3); INDEX ICTERIC 1 (1-4); INDEX LIPEMIC 1 (1-3); MEAN CORPUSCULAR HEMOGLOBIN 26.7 pg (28.0-32.0); MEAN CORPUSCULAR VOLUME 83.4 fL (80.0-94.0); MEAN PLATELET VOLUME 8.3 fl (7.4-10.4); PLATELET 419 x1000/uL (130-400); RED BLOOD CELL COUNT 4.38 mill/uL (4.7-6.1); RED CELL DISTRIBUTION WIDTH 15.5 % (11.6-14.6); UREA NITROGEN BLOOD 22 mg/dL (7-21); WHITE BLOOD COUNT 16.2 x1000/uL (4.5-11.0); eGFR > 60 mL/min (>60)
[2016-07-29 06:53] LABS: DIFFERENTIAL COMMENT 1
[2016-07-29] MEDS: THEOPHYLLINE ANHYDROUS 80 MG/15 ML 120ML PO SCH ×3 (06:53→21:13)
[2016-07-29] MEDS: METHYLPREDNISOLONE SOD SUCC 40 MG/ML VIAL IV SCH (06:53)
[2016-07-29] MEDS: BUDESONIDE 0.5MG/2ML NEB HHN SCH ×2 (08:47→19:57)
[2016-07-29] MEDS: NICOTINE 21MG PATCH TD SCH (09:12)
[2016-07-29] MEDS: CLONIDINE 0.1MG TABLET PO PRN ×3 (09:12→18:03)
[2016-07-29] MEDS: RITONAVIR 100 MG TABLET PO SCH ×2 (09:13→18:02)
[2016-07-29] MEDS: ENOXAPARIN 40MG/0.4ML SYR SUBCUT SCH (09:14)
[2016-07-29] MEDS ORDERED: TERBUTALINE SULFATE 1MG/ML VIAL SUBCUT SCH (09:15)
[2016-07-29] MEDS ORDERED: PREDNISONE 20MG TABLET PO SCH (09:15)
[2016-07-29] MEDS: FAMOTIDINE 20MG/2ML VIAL IV SCH ×2 (09:17→20:46)
[2016-07-29] MEDS: BACITRACIN ZINC 15GM TUBE TOP SCH ×2 (09:17→20:47)
[2016-07-29] MEDS: PREZISTA 600 MG PO SCH ×2 (09:18→18:04)
[2016-07-29] MEDS: MULTIVITAMINS,THER W-MINERALS TABLET PO SCH (09:18)
[2016-07-29] MEDS: FOLIC ACID 1MG TABLET PO SCH (09:18)
[2016-07-29] MEDS: ASPIRIN 81MG TABLET PO SCH (09:18)
[2016-07-29] MEDS: THIAMINE HCL 100MG TABLET PO SCH (09:18)
[2016-07-29] MEDS: ENALAPRIL 5MG TABLET PO SCH (09:18)
[2016-07-29] MEDS: INTELENCE 200 MG PO SCH ×2 (09:19→18:04)
[2016-07-29 09:46] LABS: PLATELET ESTIMATE SLIGHTLY INCREASED
[2016-07-29] MEDS: SULFAMETHOXAZOLE/TRIMETHOPRIM 800/160MG TABLET PO SCH (09:59)
[2016-07-29] MEDS: TERBUTALINE SULFATE 1MG/ML VIAL SUBCUT SCH ×2 (13:36→18:03)
[2016-07-29] MEDS: NYSTATIN 100,000 UNITS/ML 5ML UDC SSW SCH ×3 (13:36→23:20)
[2016-07-29] MEDS: LEVOFLOXACIN 750MG PREMIX 150 ML IV SCH (15:12)
[2016-07-29] MEDS ORDERED: CLONIDINE 0.3MG TABLET PO PRN (18:00)
[2016-07-29] MEDS: CEFTRIAXONE 1 G PREMIX 50 ML IV SCH (18:02)
[2016-07-29] MEDS: PREDNISONE 20MG TABLET PO SCH (18:03)
[2016-07-29] MEDS: ALBUTEROL (0.083%) 2.5MG/3ML NEB HHN PRN (19:59)
[2016-07-30] VITALS (13 sets, daily range): BP systolic 126–162; BP diastolic 79–107
[2016-07-30] MEDS: NYSTATIN 100,000 UNITS/ML 5ML UDC SSW SCH ×3 (05:33→17:19)
[2016-07-30] MEDS: THEOPHYLLINE ANHYDROUS 80 MG/15 ML 120ML PO SCH (05:33)
[2016-07-30 06:01] LABS: ANION GAP 14; CALCIUM 8.2 mg/dL (8.5-10.1); CARBON DIOXIDE 26 mEq/L (21-32); CHLORIDE 105 mEq/L (98-107); INDEX HEMOLYSI 1 (1-3); INDEX ICTERIC 1 (1-4); INDEX LIPEMIC 1 (1-3); UREA NITROGEN BLOOD 23 mg/dL (7-21); eGFR > 60 mL/min (>60)
[2016-07-30 06:02] LABS: HEMATOCRIT. 35.8 % (42.0-52.0); HEMOGLOBIN. 11.5 g/dL (14.0-18.0); MEAN CORPUSCULAR HEMOGLOBIN 26.7 pg (28.0-32.0); MEAN CORPUSCULAR HGB CONC 32.2 g/dL (31.0-37.0); MEAN CORPUSCULAR VOLUME 83.2 fL (80.0-94.0); MEAN PLATELET VOLUME 8.2 fl (7.4-10.4); PLATELET 401 x1000/uL (130-400); RED CELL DISTRIBUTION WIDTH 16.1 % (11.6-14.6)
[2016-07-30 07:33] LABS: DIFFERENTIAL COMMENT 1
[2016-07-30] MEDS: BUDESONIDE 0.5MG/2ML NEB HHN SCH ×2 (08:50→21:44)
[2016-07-30] MEDS: FAMOTIDINE 20MG/2ML VIAL IV SCH ×2 (09:11→20:41)
[2016-07-30] MEDS: NICOTINE 21MG PATCH TD SCH (09:12)
[2016-07-30] MEDS: TERBUTALINE SULFATE 1MG/ML VIAL SUBCUT SCH (09:12)
[2016-07-30] MEDS: RITONAVIR 100 MG TABLET PO SCH ×2 (09:13→17:19)
[2016-07-30] MEDS: FOLIC ACID 1MG TABLET PO SCH (09:13)
[2016-07-30] MEDS: THIAMINE HCL 100MG TABLET PO SCH (09:13)
[2016-07-30] MEDS: MULTIVITAMINS,THER W-MINERALS TABLET PO SCH (09:13)
[2016-07-30] MEDS: PREDNISONE 20MG TABLET PO SCH (09:13)
[2016-07-30] MEDS: ENALAPRIL 5MG TABLET PO SCH (09:14)
[2016-07-30] MEDS: ENOXAPARIN 40MG/0.4ML SYR SUBCUT SCH (09:14)
[2016-07-30] MEDS: INTELENCE 200 MG PO SCH ×2 (09:15→17:20)
[2016-07-30] MEDS: PREZISTA 600 MG PO SCH ×2 (09:15→17:20)
[2016-07-30] MEDS: BACITRACIN ZINC 15GM TUBE TOP SCH ×2 (09:17→20:46)
[2016-07-30] MEDS: ASPIRIN 81MG TABLET PO SCH (09:26)
[2016-07-30] MEDS ORDERED: AMLODIPINE 10MG TABLET PO NR (14:00)
[2016-07-30 14:12] LABS: BG BASE EXCESS 1.9 mmol/L (-2.0-2.0); BG CARBOXYHEMOGLOBIN 0.8 % (0.5-1.5); BG DEOXYHEMOGLOBIN 5.5 % (0.0-5.0); BG FRACTION INSPIRED OXYGEN 100; BG HCO3 ACT 25.7 mmol/L (22.0-26.0); BG OXYGEN SATURATION 94.5 % (92.0-98.5); BG OXYHEMOGLOBIN 93.7 % (94.0-97.0); BG PCO2 37.4 mmHg (35.0-45.0); BG PH 7.455 (7.350-7.450); BG PO2 72.7 mmHg (75.0-100.0); BG SAMPLE SITE RIGHT BRACHIAL; BG TOTAL HEMOGLOBIN 12.9 g/dL (12.0-18.0); BG VENT MODE VAPOTHERM
[2016-07-30] MEDS: LEVOFLOXACIN 750MG PREMIX 150 ML IV SCH (15:01)
[2016-07-30] MEDS: CEFTRIAXONE 1 G PREMIX 50 ML IV SCH (18:05)
[2016-07-30 21:14] LABS: PLATELET ESTIMATE SLIGHTLY INCREASED
[2016-07-31] VITALS (17 sets, daily range): BP systolic 113–154; BP diastolic 80–110
[2016-07-31] MEDS: NYSTATIN 100,000 UNITS/ML 5ML UDC SSW SCH ×5 (01:37→23:46)
[2016-07-31 06:44] LABS: ANION GAP 11; CALCIUM 8.3 mg/dL (8.5-10.1); CARBON DIOXIDE 30 mEq/L (21-32); CHLORIDE 104 mEq/L (98-107); INDEX HEMOLYSI 1 (1-3); INDEX ICTERIC 1 (1-4); INDEX LIPEMIC 1 (1-3); UREA NITROGEN BLOOD 21 mg/dL (7-21); eGFR > 60 mL/min (>60)
[2016-07-31 06:55] LABS: HEMATOCRIT. 36.2 % (42.0-52.0); HEMOGLOBIN. 11.8 g/dL (14.0-18.0); MEAN CORPUSCULAR HEMOGLOBIN 26.9 pg (28.0-32.0); MEAN CORPUSCULAR HGB CONC 32.5 g/dL (31.0-37.0); MEAN CORPUSCULAR VOLUME 82.8 fL (80.0-94.0); MEAN PLATELET VOLUME 8.1 fl (7.4-10.4); PLATELET 371 x1000/uL (130-400); RED BLOOD CELL COUNT 4.37 mill/uL (4.7-6.1); WHITE BLOOD COUNT 13.5 x1000/uL (4.5-11.0)
[2016-07-31 07:06] LABS: DIFFERENTIAL COMMENT 1
[2016-07-31] MEDS: ALBUTEROL (0.083%) 2.5MG/3ML NEB HHN PRN ×2 (07:58→21:19)
[2016-07-31] MEDS: BUDESONIDE 0.5MG/2ML NEB HHN SCH ×2 (07:58→21:19)
[2016-07-31] MEDS: FAMOTIDINE 20MG/2ML VIAL IV SCH ×2 (09:12→20:59)
[2016-07-31] MEDS: PREDNISONE 20MG TABLET PO SCH (09:12)
[2016-07-31] MEDS: FOLIC ACID 1MG TABLET PO SCH (09:13)
[2016-07-31] MEDS: AMLODIPINE 10MG TABLET PO SCH (09:13)
[2016-07-31] MEDS: ENALAPRIL 5MG TABLET PO SCH (09:13)
[2016-07-31] MEDS: MULTIVITAMINS,THER W-MINERALS TABLET PO SCH (09:13)
[2016-07-31] MEDS: THIAMINE HCL 100MG TABLET PO SCH (09:13)
[2016-07-31] MEDS: ASPIRIN 81MG TABLET PO SCH (09:13)
[2016-07-31] MEDS: RITONAVIR 100 MG TABLET PO SCH ×2 (09:14→17:30)
[2016-07-31] MEDS: ENOXAPARIN 40MG/0.4ML SYR SUBCUT SCH (09:14)
[2016-07-31] MEDS: NICOTINE 21MG PATCH TD SCH (09:15)
[2016-07-31] MEDS: PREZISTA 600 MG PO SCH ×2 (09:15→17:31)
[2016-07-31] MEDS: BACITRACIN ZINC 15GM TUBE TOP SCH ×2 (09:24→20:59)
[2016-07-31] MEDS: INTELENCE 200 MG PO SCH ×2 (09:28→17:30)
[2016-07-31 10:24] LABS: PLATELET ESTIMATE NORMAL
[2016-07-31 10:25] LABS: ANISOCYTOSIS 1+
[2016-07-31] MEDS ORDERED: FLUCONAZOLE 200MG TABLET PO NR (12:00)
[2016-07-31] MEDS: LEVOFLOXACIN 750MG PREMIX 150 ML IV SCH (15:56)
[2016-07-31] MEDS: CEFTRIAXONE 1 G PREMIX 50 ML IV SCH (17:30)
[2016-08-01] VITALS (12 sets, daily range): BP systolic 103–141; BP diastolic 64–90
[2016-08-01] MEDS: NYSTATIN 100,000 UNITS/ML 5ML UDC SSW SCH ×4 (05:22→23:19)
[2016-08-01] MEDS: ALBUTEROL (0.083%) 2.5MG/3ML NEB HHN PRN ×2 (08:57→20:33)
[2016-08-01] MEDS: BUDESONIDE 0.5MG/2ML NEB HHN SCH ×2 (08:58→20:33)
[2016-08-01] MEDS: BACITRACIN ZINC 15GM TUBE TOP SCH ×2 (09:00→21:12)
[2016-08-01] MEDS: NICOTINE 21MG PATCH TD SCH (09:32)
[2016-08-01] MEDS: ENOXAPARIN 40MG/0.4ML SYR SUBCUT SCH (09:33)
[2016-08-01] MEDS: FAMOTIDINE 20MG/2ML VIAL IV SCH ×2 (09:33→21:12)
[2016-08-01] MEDS: AMLODIPINE 10MG TABLET PO SCH (09:33)
[2016-08-01] MEDS: THIAMINE HCL 100MG TABLET PO SCH (09:34)
[2016-08-01] MEDS: MULTIVITAMINS,THER W-MINERALS TABLET PO SCH (09:34)
[2016-08-01] MEDS: PREDNISONE 20MG TABLET PO SCH (09:34)
[2016-08-01] MEDS: RITONAVIR 100 MG TABLET PO SCH ×2 (09:34→17:53)
[2016-08-01] MEDS: ASPIRIN 81MG TABLET PO SCH (09:35)
[2016-08-01] MEDS: FOLIC ACID 1MG TABLET PO SCH (09:35)
[2016-08-01] MEDS: PREZISTA 600 MG PO SCH ×2 (09:37→17:54)
[2016-08-01] MEDS: INTELENCE 200 MG PO SCH ×2 (09:37→17:53)
[2016-08-01] MEDS: ENALAPRIL 5MG TABLET PO SCH (10:05)
[2016-08-01] MEDS: LEVOFLOXACIN 750MG PREMIX 150 ML IV SCH (15:30)
[2016-08-01] MEDS: CEFTRIAXONE 1 G PREMIX 50 ML IV SCH (18:03)
[2016-08-02] VITALS (12 sets, daily range): BP systolic 106–134; BP diastolic 71–97
[2016-08-02] MEDS: NYSTATIN 100,000 UNITS/ML 5ML UDC SSW SCH ×3 (05:13→17:51)
[2016-08-02] MEDS: BACITRACIN ZINC 15GM TUBE TOP SCH ×2 (09:00→20:25)
[2016-08-02] MEDS: ALBUTEROL (0.083%) 2.5MG/3ML NEB HHN PRN ×2 (09:15→22:02)
[2016-08-02] MEDS: BUDESONIDE 0.5MG/2ML NEB HHN SCH ×2 (09:15→22:02)
[2016-08-02] MEDS: INTELENCE 200 MG PO SCH ×2 (09:45→17:51)
[2016-08-02] MEDS: PREZISTA 600 MG PO SCH ×2 (09:45→17:51)
[2016-08-02] MEDS: ENOXAPARIN 40MG/0.4ML SYR SUBCUT SCH (09:45)
[2016-08-02] MEDS: MULTIVITAMINS,THER W-MINERALS TABLET PO SCH (09:46)
[2016-08-02] MEDS: THIAMINE HCL 100MG TABLET PO SCH (09:46)
[2016-08-02] MEDS: RITONAVIR 100 MG TABLET PO SCH ×2 (09:46→17:50)
[2016-08-02] MEDS: NICOTINE 21MG PATCH TD SCH (09:46)
[2016-08-02] MEDS: FOLIC ACID 1MG TABLET PO SCH (09:46)
[2016-08-02] MEDS: ENALAPRIL 5MG TABLET PO SCH (09:46)
[2016-08-02] MEDS: AMLODIPINE 10MG TABLET PO SCH (09:46)
[2016-08-02] MEDS: FAMOTIDINE 20MG/2ML VIAL IV SCH ×2 (09:47→20:24)
[2016-08-02] MEDS: PREDNISONE 20MG TABLET PO SCH (09:47)
[2016-08-02] MEDS: ASPIRIN 81MG TABLET PO SCH (09:47)
[2016-08-02] MEDS: CEFTRIAXONE 1 G PREMIX 50 ML IV SCH (18:03)
[2016-08-03] VITALS (12 sets, daily range): BP systolic 112–145; BP diastolic 59–97
[2016-08-03] MEDS: NYSTATIN 100,000 UNITS/ML 5ML UDC SSW SCH ×5 (05:32→23:32)
[2016-08-03] MEDS: BUDESONIDE 0.5MG/2ML NEB HHN SCH ×2 (08:56→21:00)
[2016-08-03] MEDS: FOLIC ACID 1MG TABLET PO SCH (09:41)
[2016-08-03] MEDS: FAMOTIDINE 20MG/2ML VIAL IV SCH ×2 (09:41→20:47)
[2016-08-03] MEDS: ASPIRIN 81MG TABLET PO SCH (09:41)
[2016-08-03] MEDS: RITONAVIR 100 MG TABLET PO SCH ×2 (09:42→17:23)
[2016-08-03] MEDS: ENALAPRIL 5MG TABLET PO SCH (09:42)
[2016-08-03] MEDS: THIAMINE HCL 100MG TABLET PO SCH (09:42)
[2016-08-03] MEDS: AMLODIPINE 10MG TABLET PO SCH (09:42)
[2016-08-03] MEDS: MULTIVITAMINS,THER W-MINERALS TABLET PO SCH (09:42)
[2016-08-03] MEDS: PREDNISONE 20MG TABLET PO SCH (09:42)
[2016-08-03] MEDS: PREZISTA 600 MG PO SCH ×2 (09:43→17:23)
[2016-08-03] MEDS: NICOTINE 21MG PATCH TD SCH (09:43)
[2016-08-03] MEDS: INTELENCE 200 MG PO SCH ×2 (09:43→17:23)
[2016-08-03] MEDS: ENOXAPARIN 40MG/0.4ML SYR SUBCUT SCH (09:44)
[2016-08-03] MEDS: BACITRACIN ZINC 15GM TUBE TOP SCH ×2 (12:47→20:50)
[2016-08-03] MEDS: CEFTRIAXONE 1 G PREMIX 50 ML IV SCH (17:24)
[2016-08-03] MEDS: ALBUTEROL (0.083%) 2.5MG/3ML NEB HHN PRN (21:05)
[2016-08-04] VITALS (11 sets, daily range): BP systolic 100–132; BP diastolic 71–95
[2016-08-04] MEDS: NYSTATIN 100,000 UNITS/ML 5ML UDC SSW SCH ×3 (06:38→19:32)
[2016-08-04] MEDS: BUDESONIDE 0.5MG/2ML NEB HHN SCH ×2 (07:49→20:45)
[2016-08-04] MEDS: ALBUTEROL (0.083%) 2.5MG/3ML NEB HHN PRN (07:49)
[2016-08-04] MEDS: BACITRACIN ZINC 15GM TUBE TOP SCH ×3 (09:00→21:00)
[2016-08-04] MEDS: ENOXAPARIN 40MG/0.4ML SYR SUBCUT SCH (09:59)
[2016-08-04] MEDS: AMLODIPINE 10MG TABLET PO SCH (10:00)
[2016-08-04] MEDS: FAMOTIDINE 20MG/2ML VIAL IV SCH ×2 (10:00→20:44)
[2016-08-04] MEDS: AZITHROMYCIN 600 MG TABLET PO SCH (10:00)
[2016-08-04] MEDS: ENALAPRIL 5MG TABLET PO SCH (10:01)
[2016-08-04] MEDS: FOLIC ACID 1MG TABLET PO SCH (10:01)
[2016-08-04] MEDS: ASPIRIN 81MG TABLET PO SCH (10:01)
[2016-08-04] MEDS: MULTIVITAMINS,THER W-MINERALS TABLET PO SCH (10:01)
[2016-08-04] MEDS: NICOTINE 21MG PATCH TD SCH (10:01)
[2016-08-04] MEDS: RITONAVIR 100 MG TABLET PO SCH ×2 (10:02→17:20)
[2016-08-04] MEDS: PREZISTA 600 MG PO SCH ×2 (10:04→17:20)
[2016-08-04] MEDS: INTELENCE 200 MG PO SCH ×2 (10:04→17:20)
[2016-08-04] MEDS: THIAMINE HCL 100MG TABLET PO SCH (10:06)
[2016-08-04] MEDS: CEFTRIAXONE 1 G PREMIX 50 ML IV SCH (17:20)
[2016-08-05] VITALS (9 sets, daily range): BP systolic 108–149; BP diastolic 54–84
[2016-08-05] MEDS: NYSTATIN 100,000 UNITS/ML 5ML UDC SSW SCH ×3 (05:43→12:00)
[2016-08-05] MEDS: BUDESONIDE 0.5MG/2ML NEB HHN SCH ×2 (08:00→20:24)
[2016-08-05] MEDS: AMLODIPINE 10MG TABLET PO SCH (08:51)
[2016-08-05] MEDS: THIAMINE HCL 100MG TABLET PO SCH (08:51)
[2016-08-05] MEDS: FAMOTIDINE 20MG/2ML VIAL IV SCH ×2 (08:51→21:05)
[2016-08-05] MEDS: FOLIC ACID 1MG TABLET PO SCH (08:51)
[2016-08-05] MEDS: INTELENCE 200 MG PO SCH ×2 (08:52→18:01)
[2016-08-05] MEDS: RITONAVIR 100 MG TABLET PO SCH ×2 (08:52→18:01)
[2016-08-05] MEDS: MULTIVITAMINS,THER W-MINERALS TABLET PO SCH (08:52)
[2016-08-05] MEDS: PREZISTA 600 MG PO SCH ×2 (08:52→18:01)
[2016-08-05] MEDS: ASPIRIN 81MG TABLET PO SCH (08:52)
[2016-08-05] MEDS: ENALAPRIL 5MG TABLET PO SCH (08:52)
[2016-08-05] MEDS: ENOXAPARIN 40MG/0.4ML SYR SUBCUT SCH (08:53)
[2016-08-05] MEDS: NICOTINE 21MG PATCH TD SCH (08:54)
[2016-08-05] MEDS: ACETAMINOPHEN 325MG TABLET PO PRN (14:05)
[2016-08-05] MEDS: BACITRACIN ZINC 15GM TUBE TOP SCH ×2 (14:09→21:09)
[2016-08-05] MEDS: CEFTRIAXONE 1 G PREMIX 50 ML IV SCH (18:56)
[2016-08-06] VITALS (12 sets, daily range): BP systolic 98–135; BP diastolic 57–85
[2016-08-06] MEDS: ACETAMINOPHEN 325MG TABLET PO PRN (06:55)
[2016-08-06] MEDS: BUDESONIDE 0.5MG/2ML NEB HHN SCH ×2 (08:03→20:47)
[2016-08-06] MEDS: ALBUTEROL (0.083%) 2.5MG/3ML NEB HHN PRN ×2 (08:03→20:47)
[2016-08-06] MEDS: FAMOTIDINE 20MG/2ML VIAL IV SCH (09:43)
[2016-08-06] MEDS: MULTIVITAMINS,THER W-MINERALS TABLET PO SCH (09:43)
[2016-08-06] MEDS: PREZISTA 600 MG PO SCH ×2 (09:43→18:10)
[2016-08-06] MEDS: RITONAVIR 100 MG TABLET PO SCH ×2 (09:43→18:10)
[2016-08-06] MEDS: AMLODIPINE 10MG TABLET PO SCH (09:43)
[2016-08-06] MEDS: ASPIRIN 81MG TABLET PO SCH (09:43)
[2016-08-06] MEDS: THIAMINE HCL 100MG TABLET PO SCH (09:43)
[2016-08-06] MEDS: FOLIC ACID 1MG TABLET PO SCH (09:43)
[2016-08-06] MEDS: ENALAPRIL 5MG TABLET PO SCH (09:44)
[2016-08-06] MEDS: ENOXAPARIN 40MG/0.4ML SYR SUBCUT SCH (09:44)
[2016-08-06] MEDS: INTELENCE 200 MG PO SCH ×2 (09:44→18:11)
[2016-08-06] MEDS: BACITRACIN ZINC 15GM TUBE TOP SCH ×2 (09:45→21:00)
[2016-08-06] MEDS: NICOTINE 21MG PATCH TD SCH (09:45)
[2016-08-06] MEDS ORDERED: [UNRECOGNIZED DRUG - OTHER] PO PRN (13:00)
[2016-08-06] MEDS: [UNRECOGNIZED DRUG - REMARK] SSW PRN (18:11)
[2016-08-07] VITALS (12 sets, daily range): BP systolic 99–127; BP diastolic 47–87
[2016-08-07] MEDS: [UNRECOGNIZED DRUG - REMARK] SSW PRN ×2 (08:25→19:13)
[2016-08-07] MEDS: ALBUTEROL (0.083%) 2.5MG/3ML NEB HHN PRN ×2 (08:45→20:39)
[2016-08-07] MEDS: BUDESONIDE 0.5MG/2ML NEB HHN SCH ×2 (08:46→20:40)
[2016-08-07] MEDS: NICOTINE 21MG PATCH TD SCH (09:19)
[2016-08-07] MEDS: ENOXAPARIN 40MG/0.4ML SYR SUBCUT SCH (09:22)
[2016-08-07] MEDS: AMLODIPINE 10MG TABLET PO SCH (09:23)
[2016-08-07] MEDS: ASPIRIN 81MG TABLET PO SCH (09:23)
[2016-08-07] MEDS: ENALAPRIL 5MG TABLET PO SCH (09:23)
[2016-08-07] MEDS: FOLIC ACID 1MG TABLET PO SCH (09:24)
[2016-08-07] MEDS: MULTIVITAMINS,THER W-MINERALS TABLET PO SCH (09:24)
[2016-08-07] MEDS: RITONAVIR 100 MG TABLET PO SCH ×2 (09:24→16:51)
[2016-08-07] MEDS: BACITRACIN ZINC 15GM TUBE TOP SCH ×2 (09:25→21:17)
[2016-08-07] MEDS: PREZISTA 600 MG PO SCH ×2 (09:25→16:52)
[2016-08-07] MEDS: INTELENCE 200 MG PO SCH ×2 (10:15→16:52)
[2016-08-07] MEDS: THIAMINE HCL 100MG TABLET PO SCH (10:29)
[2016-08-08] VITALS (16 sets, daily range): BP systolic 100–136; BP diastolic 58–95
[2016-08-08 06:51] LABS: BASOPHILS % 0.7 % (0.0-2.0); DIFFERENTIAL COMMENT 0; EOSINOPHILS % 3.3 % (0.0-5.0); HEMATOCRIT 36.9 % (42.0-52.0); HEMATOCRIT. 36.9 % (42.0-52.0); HEMOGLOBIN 12.3 g/dL (14.0-18.0); HEMOGLOBIN. 12.3 g/dL (14.0-18.0); LYMPHOCYTES % 8.5 % (20.0-50.0); MEAN CORPUSCULAR HEMOGLOBIN 27.5 pg (28.0-32.0); MEAN CORPUSCULAR HGB CONC 33.5 g/dL (31.0-37.0); MEAN CORPUSCULAR VOLUME 82.2 fL (80.0-94.0); MEAN PLATELET VOLUME 8.6 fl (7.4-10.4); MONOCYTES % 7.4 % (2.0-8.0); NEUTROPHILS % 80.1 % (40.0-76.0); PLATELET 141 x1000/uL (130-400); RED BLOOD CELL COUNT 4.49 mill/uL (4.7-6.1); RED CELL DISTRIBUTION WIDTH 16.6 % (11.6-14.6); WHITE BLOOD COUNT 5.9 x1000/uL (4.5-11.0)
[2016-08-08 08:04] LABS: ANION GAP 12; CALCIUM 8.8 mg/dL (8.5-10.1); CARBON DIOXIDE 25 mEq/L (21-32); CHLORIDE 102 mEq/L (98-107); INDEX HEMOLYSI 1 (1-3); INDEX ICTERIC 1 (1-4); INDEX LIPEMIC 1 (1-3); UREA NITROGEN BLOOD 26 mg/dL (7-21); eGFR > 60 mL/min (>60)
[2016-08-08] MEDS: BUDESONIDE 0.5MG/2ML NEB HHN SCH ×2 (08:08→20:20)
[2016-08-08] MEDS: [UNRECOGNIZED DRUG - REMARK] SSW PRN ×2 (08:41→18:24)
[2016-08-08] MEDS: THIAMINE HCL 100MG TABLET PO SCH (08:43)
[2016-08-08] MEDS: MULTIVITAMINS,THER W-MINERALS TABLET PO SCH (08:44)
[2016-08-08] MEDS: ASPIRIN 81MG TABLET PO SCH (08:44)
[2016-08-08] MEDS: AMLODIPINE 10MG TABLET PO SCH (08:46)
[2016-08-08] MEDS: ENALAPRIL 5MG TABLET PO SCH (08:46)
[2016-08-08] MEDS: NICOTINE 21MG PATCH TD SCH (08:47)
[2016-08-08] MEDS: RITONAVIR 100 MG TABLET PO SCH ×2 (08:48→18:17)
[2016-08-08] MEDS: FOLIC ACID 1MG TABLET PO SCH (08:56)
[2016-08-08] MEDS: INTELENCE 200 MG PO SCH ×2 (08:57→18:17)
[2016-08-08] MEDS: PREZISTA 600 MG PO SCH ×2 (08:57→18:17)
[2016-08-08] MEDS: ENOXAPARIN 40MG/0.4ML SYR SUBCUT SCH (09:01)
[2016-08-08] MEDS: BACITRACIN ZINC 15GM TUBE TOP SCH ×2 (09:02→22:44)
[2016-08-08] MEDS: DIPHENHYDRAMINE 50MG/ML VIAL IV PRN (09:06)
[2016-08-08] MEDS: SULFAMETHOXAZOLE/TRIMETHOPRIM 800/160MG TABLET PO SCH (12:04)
[2016-08-08 12:10] LABS: BG BASE EXCESS 1.7 mmol/L (-2.0-2.0); BG CARBOXYHEMOGLOBIN 0.7 % (0.5-1.5); BG DEOXYHEMOGLOBIN 10.9 % (0.0-5.0); BG FRACTION INSPIRED OXYGEN 21; BG HCO3 ACT 24.2 mmol/L (22.0-26.0); BG METHEMOGLOBIN 0.1 % (0.0-1.5); BG OXYHEMOGLOBIN 88.3 % (94.0-97.0); BG PCO2 31.8 mmHg (35.0-45.0); BG PO2 55.3 mmHg (75.0-100.0); BG SAMPLE SITE RIGHT BRACHIAL; BG TOTAL HEMOGLOBIN 13.4 g/dL (12.0-18.0); BG VENT MODE ROOM AIR
[2016-08-08] MEDS: ALBUTEROL (0.083%) 2.5MG/3ML NEB HHN PRN (20:20)
[2016-08-09] VITALS (10 sets, daily range): BP systolic 102–126; BP diastolic 68–98
[2016-08-09] MEDS: DIPHENHYDRAMINE 50MG/ML VIAL IV PRN ×3 (00:48→16:31)
[2016-08-09] MEDS: FOLIC ACID 1MG TABLET PO SCH (08:18)
[2016-08-09] MEDS: ASPIRIN 81MG TABLET PO SCH (08:18)
[2016-08-09] MEDS: SULFAMETHOXAZOLE/TRIMETHOPRIM 800/160MG TABLET PO SCH (08:19)
[2016-08-09] MEDS: ENALAPRIL 5MG TABLET PO SCH (08:19)
[2016-08-09] MEDS: THIAMINE HCL 100MG TABLET PO SCH (08:19)
[2016-08-09] MEDS: MULTIVITAMINS,THER W-MINERALS TABLET PO SCH (08:19)
[2016-08-09] MEDS: AMLODIPINE 10MG TABLET PO SCH (08:20)
[2016-08-09] MEDS: RITONAVIR 100 MG TABLET PO SCH ×2 (08:21→16:30)
[2016-08-09] MEDS: INTELENCE 200 MG PO SCH ×2 (08:21→16:30)
[2016-08-09] MEDS: PREZISTA 600 MG PO SCH ×2 (08:21→16:30)
[2016-08-09] MEDS: ENOXAPARIN 40MG/0.4ML SYR SUBCUT SCH (08:22)
[2016-08-09] MEDS: BACITRACIN ZINC 15GM TUBE TOP SCH (08:22)
[2016-08-09] MEDS: NICOTINE 21MG PATCH TD SCH (08:22)
[2016-08-09] MEDS: ALBUTEROL (0.083%) 2.5MG/3ML NEB HHN PRN (08:44)
[2016-08-09] MEDS: BUDESONIDE 0.5MG/2ML NEB HHN SCH (08:44)
== END 2016-08-09 17:10 | disposition home or self-care (01) | DRG 137 ==
LOC: ER 20:58 → 5WST 07-22 00:02 → 5EST 07-24 19:59
PROVIDERS: ADMIT Internal Medicine; ATTEND Internal Medicine
DX: J69.0 Pneumonitis due to inhalation of food and vomit (principal); J96.00 Acute respiratory failure, unspecified whether with hypoxia or hypercapnia; E43 Unspecified severe protein-calorie malnutrition; I11.0 Hypertensive heart disease with heart failure; B37.0 Candidal stomatitis; R65.10 Systemic inflammatory response syndrome (SIRS) of non-infectious origin without acute organ dysfunction; J96.01 Acute respiratory failure with hypoxia; I50.32 Chronic diastolic (congestive) heart failure; I47.1 Supraventricular tachycardia; J44.0 Chronic obstructive pulmonary disease with (acute) lower respiratory infection; J44.1 Chronic obstructive pulmonary disease with (acute) exacerbation; K80.20 Calculus of gallbladder without cholecystitis without obstruction; J98.01 Acute bronchospasm; D63.8 Anemia in other chronic diseases classified elsewhere; F10.10 Alcohol abuse, uncomplicated; F17.200 Nicotine dependence, unspecified, uncomplicated; F14.10 Cocaine abuse, uncomplicated; J98.11 Atelectasis; K12.30 Oral mucositis (ulcerative), unspecified; Z91.19 Patient's noncompliance with other medical treatment and regimen; Z68.21 Body mass index [BMI] 21.0-21.9, adult
CPT/HCPCS: 36415; 36600; 71010; 71275; 80048; 80053; 80061; 80305; 81003; 82375; 82550; 82553; 82805; 82962; 83605; 84439; 84443; 84484; 85025; 85027; 85379; 86359; 86360; 87040; 90732; 93005; 93306; 93970; 94620; 94640; 94664; 96365; 96367; 96375; 97110; 97116; 97162; 97167; 97168; 97530; 97535; 99291; A4216; J0696; J1200; J1650; J1956; J2405; J2920; J2930; J3105; J3490; J7030; J7050; J7512; J7611; J7620; J7626; Q9967

== ENCOUNTER 2016-12-09 20:11 | Inpatient (IN) | payer MEDICAID ==
[~2016-12-09] VITALS: Ht 162.6 cm; Wt 58.5 kg
[~2016-12-09 20:11] MED LIST: ETRAVIRINE PO; PREZISTA PO; RALT400T PO; RITO100T PO
[2016-12-09] MEDS ORDERED: SODIUM CHLORIDE 0.9% 1,000 ML IV ONE (21:35)
[2016-12-09 22:05] LABS: HEMATOCRIT. 38.8 % (42.0-52.0); HEMOGLOBIN. 12.7 g/dL (14.0-18.0); MEAN CORPUSCULAR HEMOGLOBIN 26.4 pg (28.0-32.0); MEAN CORPUSCULAR VOLUME 80.4 fL (80.0-94.0); MEAN PLATELET VOLUME 8.8 fl (7.4-10.4); PLATELET 174 x1000/uL (130-400); RED BLOOD CELL COUNT 4.83 mill/uL (4.7-6.1); RED CELL DISTRIBUTION WIDTH 17.9 % (11.6-14.6)
[2016-12-09 22:13] LABS: PROTHROMBIN TIME 10.1 sec (9.4-11.6)
[2016-12-09 22:21] LABS: CARBON DIOXIDE 23 mEq/L (21-32); CHLORIDE 107 mEq/L (98-107); TROPONIN I 0.05 ng/mL (0.00-0.04)
[2016-12-09 22:51] LABS: PLATELET ESTIMATE NORMAL
[2016-12-10 03:30] VITALS: BP 124/77
[2016-12-10] MEDS ORDERED: ONDANSETRON HCL 4MG/2ML VIAL IV PRN (04:45)
[2016-12-10] MEDS ORDERED: ACETAMINOPHEN 325MG TABLET PO PRN (04:45)
[2016-12-10] MEDS ORDERED: GUAIFENESIN 200MG/10ML SUGAR FREE UDC PO PRN (04:45)
[2016-12-10] MEDS ORDERED: HYDROMORPHONE HCL/PF 2MG/ML CPJ IV PRN (04:45)
[2016-12-10] MEDS ORDERED: IPRATROPIUM/ALBUTEROL 0.5-3(2.5)MG/3ML NEB HHN PRN (04:45)
[2016-12-10] MEDS ORDERED: CLONIDINE 0.1MG TABLET PO PRN (04:45)
[2016-12-10] MEDS ORDERED: HYDROCODONE/ACETAMINOPHEN 5/325MG TABLET PO PRN (04:45)
[2016-12-10] MEDS ORDERED: DOCUSATE SODIUM 100MG CAPSULE PO PRN (04:45)
[2016-12-10] MEDS ORDERED: ENAL5TAB75 PO (04:50)
[2016-12-10] MEDS ORDERED: ALBU18HF2 IH (04:50)
[2016-12-10] MEDS ORDERED: DIPH25CA83 PO (04:50)
[2016-12-10] MEDS: AMLODIPINE 10MG TABLET PO SCH (06:46)
[2016-12-10 08:00] VITALS: BP 130/101
[2016-12-10] MEDS: ASPIRIN 81MG EC TABLET PO SCH (09:11)
[2016-12-10] MEDS: ENOXAPARIN 40MG/0.4ML SYR SUBCUT SCH (09:11)
[2016-12-10 11:33] LABS: TROPONIN I 0.05 ng/mL (0.00-0.04)
[2016-12-10 12:00] VITALS: BP 105/63
[2016-12-10 16:00] VITALS: BP 111/78
[2016-12-10 16:41] LABS: TROPONIN I 0.04 ng/mL (0.00-0.04)
[2016-12-10] MEDS: DIPHENHYDRAMINE 50MG/ML VIAL IV PRN (16:54)
[2016-12-10 20:00] VITALS: BP 124/93
[2016-12-11] VITALS (7 sets, daily range): BP systolic 111–127; BP diastolic 66–76
[2016-12-11] MEDS: DIPHENHYDRAMINE 50MG/ML VIAL IV PRN ×2 (03:02→09:30)
[2016-12-11 07:11] LABS: HEMATOCRIT. 35.3 % (42.0-52.0); HEMOGLOBIN. 11.8 g/dL (14.0-18.0); MEAN CORPUSCULAR HEMOGLOBIN 26.7 pg (28.0-32.0); MEAN CORPUSCULAR VOLUME 80.1 fL (80.0-94.0); MEAN PLATELET VOLUME 9.9 fl (7.4-10.4); PLATELET 175 x1000/uL (130-400); RED CELL DISTRIBUTION WIDTH 17.6 % (11.6-14.6)
[2016-12-11 08:27] LABS: CARBON DIOXIDE 24 mEq/L (21-32); CHLORIDE 109 mEq/L (98-107)
[2016-12-11 08:29] LABS: HDL CHOLESTEROL 47 mg/dL (40-59); LDL CHOLESTEROL 75 mg/dL (5-100)
[2016-12-11] MEDS: ASPIRIN 81MG EC TABLET PO SCH (08:50)
[2016-12-11] MEDS: AMLODIPINE 10MG TABLET PO SCH (08:51)
[2016-12-11] MEDS: ENOXAPARIN 40MG/0.4ML SYR SUBCUT SCH (08:51)
[2016-12-11 14:12] LABS: PLATELET ESTIMATE NORMAL
== END 2016-12-11 13:50 | disposition home or self-care (01) | DRG 133 ==
LOC: ER 20:11 → 7WST 12-10 00:20 → ENRESERV 12-10 01:54
PROVIDERS: ADMIT Hospitalist; ATTEND Hospitalist
DX: J96.20 Acute and chronic respiratory failure, unspecified whether with hypoxia or hypercapnia (principal); Z99.81 Dependence on supplemental oxygen; J44.9 Chronic obstructive pulmonary disease, unspecified; F17.210 Nicotine dependence, cigarettes, uncomplicated; I10 Essential (primary) hypertension; Z88.8 Allergy status to other drugs, medicaments and biological substances; Z79.899 Other long term (current) drug therapy; M94.0 Chondrocostal junction syndrome [Tietze]
CPT/HCPCS: 36415; 71010; 80053; 80061; 82550; 83880; 84484; 85025; 85610; 93005; 93306; 93970; 94664; 96360; 99285; J1200; J1650; J7030; J7620

== ENCOUNTER 2016-12-17 21:21 | Emergency (ER) | payer MEDICAID ==
[~2016-12-17] VITALS: Ht 162.6 cm; Wt 59.0 kg
[~2016-12-17 21:21] MED LIST changes: +ALBU18HF2 IH; +DIPH25CA83 PO; +ENAL5TAB75 PO
[2016-12-18] MEDS ORDERED: PANT40TA4 PO (04:59)
[2016-12-18] MEDS ORDERED: PREDNISONE 10MG TABLET PO ONE (07:00)
[2016-12-18 08:03] VITALS: BP 108/63
== END 2016-12-18 08:09 | disposition home or self-care (01) ==
LOC: ER 12-18 07:36
DX: T14.8 Other injury of unspecified body region (principal); J44.9 Chronic obstructive pulmonary disease, unspecified; F11.10 Opioid abuse, uncomplicated; F12.10 Cannabis abuse, uncomplicated; Z88.8 Allergy status to other drugs, medicaments and biological substances; W57.XXXA Bitten or stung by nonvenomous insect and other nonvenomous arthropods, initial encounter; Y93.89 Activity, other specified; Y92.89 Other specified places as the place of occurrence of the external cause; Y99.8 Other external cause status
CPT/HCPCS: 99283; J7512; Z7610

== ENCOUNTER 2017-03-11 01:52 | Emergency (ER) | payer MEDICAID ==
[~2017-03-11] VITALS: Ht 162.6 cm; Wt 61.6 kg
[~2017-03-11 01:52] MED LIST changes: +PANT40TA4 PO
[2017-03-11] MEDS ORDERED: METHYLPREDNISOLONE SOD SUCC 125 MG/2 ML VIAL IM ONE (06:45)
[2017-03-11 07:00] VITALS: BP 141/95
== END 2017-03-11 07:29 | disposition home or self-care (01) ==
LOC: ER 01:52
DX: H93.8X1 Other specified disorders of right ear (principal); I10 Essential (primary) hypertension; J44.9 Chronic obstructive pulmonary disease, unspecified
CPT/HCPCS: 96372; 99283; J2930; Z7610

== ENCOUNTER 2017-03-20 01:09 | Emergency (ER) | payer MEDICAID ==
[~2017-03-20] VITALS: Ht 162.6 cm; Wt 62.0 kg
[2017-03-20] MEDS ORDERED: LIDOCAINE HCL 1% 20ML VIAL (Pyxis) INJ MC ONE (05:30)
[2017-03-20] MEDS ORDERED: TETANUS, DIPHTHERIA, PERTUSSIS VAC/PF 0.5ML (>7YR OLD) IM ONE (05:30)
[2017-03-20] MEDS ORDERED: BACITRACIN ZINC OINT UDPKT TOP ONE (05:30)
[2017-03-20 06:29] VITALS: BP 125/80
== END 2017-03-20 06:32 | disposition home or self-care (01) ==
LOC: ER 01:40
DX: H60.01 Abscess of right external ear (principal); I10 Essential (primary) hypertension; J44.9 Chronic obstructive pulmonary disease, unspecified; F17.200 Nicotine dependence, unspecified, uncomplicated; F14.10 Cocaine abuse, uncomplicated
CPT/HCPCS: 69000; 90471; 90715; 99284; J3490; Z7610

== ENCOUNTER 2017-03-27 10:46 | Emergency (ER) | payer MEDICAID ==
[~2017-03-27] VITALS: Ht 162.6 cm; Wt 59.0 kg
[2017-03-27 10:49] VITALS: BP 107/82
[2017-03-27] MEDS ORDERED: LIDOCAINE HCL 1% 20ML VIAL (Pyxis) INJ INFIL ONE (11:45)
[2017-03-27] MEDS ORDERED: BACITRACIN ZINC OINT UDPKT TOP ONE (12:30)
== END 2017-03-27 12:41 | disposition home or self-care (01) ==
LOC: ER 11:21
DX: H60.01 Abscess of right external ear (principal); F12.10 Cannabis abuse, uncomplicated; I10 Essential (primary) hypertension; J44.9 Chronic obstructive pulmonary disease, unspecified
CPT/HCPCS: 69000; 99284; J3490; Z7610

== ENCOUNTER 2017-04-27 05:42 | Emergency (ER) | payer MEDICAID ==
[~2017-04-27] VITALS: Ht 162.6 cm; Wt 59.0 kg
[2017-04-27 05:51] VITALS: BP 142/76
== END 2017-04-27 08:27 | disposition left against medical advice (07) ==
LOC: ER 05:42
DX: R21 Rash and other nonspecific skin eruption (principal); Z53.21 Procedure and treatment not carried out due to patient leaving prior to being seen by health care provider